=== PATIENT | male | born 1980 | race Caucasian/White ===

== ENCOUNTER → 2016-06-17 | Outpatient (CLI) | payer MEDICAID ==
[~2016-06-17] MED LIST: GADOBUTROL 10 ML VIAL IVP ONE
--- NOTE | 2016-06-17 17:43 | MR ---
MRI of the Brain (Without and With Contrast) at 1650 hours Clinical Indication: Chronic migraine headache.. Technique: MRI was performed of the brain using a 1.5 Lali MRI system. Sagittal, axial, and coronal images were performed using standard imaging sequences. Images were obtained pre and post intravenou s contrast, 6 mL of Gadavist. Findings: The ventricles, cisterns, and sulci are normal for the patient's age. No evidence for an e xtra-axial fluid collection. No evidence for mass effect or midline shift. No significant white matte r lesion is identified. No evidence for intracranial mass, hemorrhage, or infarct. Diffusion-weighted images are normal. Posterior fossa appears normal with a normal appearance to the craniocervical tae ction. Pituitary gland is normal in size. The major caliber vessels visualized are normal in appearan ce. Paranasal sinuses and mastoid air cells are clear. Impression: Normal MRI of the brain without and with contrast.
== END ==
LOC: FIMAGING 16:19
PROVIDERS: ATTEND Psychiatry & Neurology Neurology
DX: G43.709 Chronic migraine without aura, not intractable, without status migrainosus (principal)
CPT/HCPCS: A9585

== ENCOUNTER 2016-11-19 00:36 | Emergency (ER) | payer OTHER, MEDICAID ==
[2016-11-19 00:45] VITALS: BP 107/63; PULSE 67; RESP 16; TEMP 98.1; O2SAT 96
[2016-11-19] MEDS ORDERED: FLUORESCEIN SODIUM 1 MG STRIP OP ONE ×2 (00:52→00:54)
--- NOTE | 2016-11-19 01:05 | EDPHY ---
H & P Stated Complaint: c/o visual disturbances, thinks he has gotten asbestos in L eye Time Seen by Provider: 11/19/16 00:48 HPI/ROS: Chief Complaint: Eye irritation HPI: 36-year-old male was looking in the direction the sense that earlier this evening when he noticed some fine lines in his vision of his left eye. Did not have any changes in his right eye. Patient states this concerned him because earlier today he was exposed to dust while pulling out vinyl kelli. Patient later looked up the name and date of the kelli and indicated there is a possibility of asbestos being in the vinyl. Patient irrigated his eye with saline. He has had some mild irritation there since irrigating. Did not have any pain. No vision changes. No redness or other irritation. Did not have any irritation prior to noticing the changes in his vision at [place]. Patient has not had any other visual disturbances. Does not wear contacts or glasses. Currently is without complaint. ROS: 10 point Review of Systems is negative except as noted in the HPI. Physical Exam: Eye Exam Visual Acuity: Per nursing note EOM: Intact OU Visual Hahn: Intact OU Pupil: Equal, round and reactive to light and accomodation OU External: Lids, lashes and margins normal OU Slit Lamp; Normal Conjuctiva, Iris normal, Cornea normal, Anterior chambers clear without cells or flare, no hyphema, normal angles Fluorosceine exam: No uptake - Medical/Surgical History Hx Asthma: No Hx Chronic Respiratory Disease: No Hx Diabetes: No Hx Cardiac Disease: No Hx Renal Disease: No Hx Cirrhosis: No Hx Alcoholism: No Hx HIV/AIDS: No Hx Splenectomy or Spleen Trauma: No Other PMH: hep b - Social History Smoking Status: Former smoker Constitutional: Initial Vital Signs Temperature (C) 36.7 C 11/19/16 00:40 Heart Rate 67 11/19/16 00:40 Respiratory Rate 16 11/19/16 00:40 Blood Pressure 107/63 11/19/16 00:40 O2 Sat (%) 96 11/19/16 00:40 O2 Delivery Mode Room Air Allergies/Adverse Reactions: No Known Allergies Allergy (Unverified 11/19/16 00:45) Home Medications: Medication Instructions Recorded NK [No Known Home Meds] 11/19/16 Medical Decision Making ED Course/Re-evaluation: Patient with some left eye irritation after exposure to some dust from 4 in removal earlier today. There is no evidence of foreign body or abrasion. Patient is concerned because there may be a possibility exposure to asbestos. Has not had any cough or shortness of breath. Does not believe he inhaled a dose. Is completely normal exam at this point. Will discharge with referral to Ophthalmology as needed, return for worsening symptoms. - Data Points Medications Given: Discontinued Medications Fluorescein Sodium (Cvhqv-D-Ybblr) 1 mg OP EDNOW ONE Stop: 11/19/16 00:55 Last Admin: 11/19/16 00:55 Dose: 1 mg Departure - Departure Disposition: Home, Routine, Self-Care Clinical Impression: Eye irritation Condition: Good Instructions: Blurred Vision (ED) Additional Instructions: Follow up with Ophthalmology in 3-4 days if symptoms are not improving. Referrals: Sophia Petersen PA [Primary Care Provider] - As per Instructions Darvin Coleman MD [Medical Doctor] - As per Instructions
== END 2016-11-19 01:13 | disposition home or self-care (01) ==
DX: H57.8 Other specified disorders of eye and adnexa (principal); Z87.891 Personal history of nicotine dependence

== ENCOUNTER → 2017-04-04 | Outpatient (CLI) | payer OTHER, MEDICAID | LOC: FIMAGING 18:46 | PROVIDERS: ATTEND Emergency Medicine | DX: M25.561 Pain in right knee (principal) ==

== ENCOUNTER → 2017-10-27 | Outpatient (CLI) | payer OTHER, MEDICAID | LOC: FIMAGING 16:55 | PROVIDERS: ATTEND Physician Assistant | DX: M79.672 Pain in left foot (principal) ==

== ENCOUNTER 2018-01-25 20:39 | Emergency (ER) | payer OTHER, MEDICAID ==
--- NOTE | 2018-01-25 21:53 | EDPHY ---
H & P Time Seen by Provider: 01/25/18 21:35 HPI/ROS: CHIEF COMPLAINT: Right 2nd digit finger tip laceration HISTORY OF PRESENT ILLNESS: Patient here with complaint of laceration to the distal tip the right 2nd digit after E slipped and cut himself with a knife while trying to cut an onion. Denies any loss of range of motion. He was having difficulty controlling the bleeding at home so he came to the ER. Denies any current drug or alcohol use. REVIEW OF SYSTEMS: Constitutional: No fever, no chills. Eyes: No discharge. ENT: No sore throat. Cardiovascular: No chest pain, no palpitations. Respiratory: No cough, no shortness of breath. Gastrointestinal: No abdominal pain, no vomiting. Genitourinary: No hematuria. Musculoskeletal: No back pain. Skin: No rashes. Neurological: No headache. Smoking Status: Former smoker Physical Exam: General Appearance: Alert and no distress. Eyes: Pupils equal and round no injection. Respiratory: Chest is nontender, lungs are clear to auscultation. Cardiac: regular rate and rhythm. Gastrointestinal: Abdomen is soft and nontender, no masses, bowel sounds normal. Musculoskeletal: Neck is supple and nontender. Extremities have full range of motion and are nontender. Skin: No rashes. 1.5 cm superficial laceration to the distal tip of the right 2nd digit. No joint or tendon involvement. Constitutional: Initial Vital Signs Temperature (C) 36.7 C 01/25/18 20:42 Heart Rate 68 01/25/18 20:42 Respiratory Rate 18 01/25/18 20:42 Blood Pressure 97/64 L 01/25/18 20:42 O2 Sat (%) 97 01/25/18 20:42 O2 Delivery Mode Room Air Allergies/Adverse Reactions: No Known Allergies Allergy (Unverified 01/25/18 20:42) Home Medications: Medication Instructions Recorded NK [No Known Home Meds] 11/19/16 Medical Decision Making Procedures: Procedure: Laceration repair. Verbal consent was obtained from the patient. The 1cm laceration on the right 2nd digit was anesthetized in the usual fashion. The wound was irrigated, draped and explored. There were no deep structures involved. No tendon injury was identified. The wound was repaired with Steri-Strips. The wound repair was well approximated and bleeding under control. The procedure was performed by myself. Departure - Departure Disposition: Home, Routine, Self-Care Clinical Impression: Finger laceration Condition: Good Instructions: Finger Laceration (ED) Additional Instructions: Return to the ER for any signs infection. Do not apply topical antibiotic ointment. Let the Steri-Strips fall off on their own in the next 2-3 days. Referrals: Sophia Petersen PA [Primary Care Provider] - As per Instructions
[2018-01-25 22:05] VITALS: BP 107/63
== END 2018-01-25 22:12 | disposition home or self-care (01) ==
PROC: 0HQFXZZ Repair Right Hand Skin, External Approach (ICD-10-PCS; principal; 2018-01-25)
DX: S61.210A Laceration without foreign body of right index finger without damage to nail, initial encounter (principal); W26.0XXA Contact with knife, initial encounter; Y93.G1 Activity, food preparation and clean up; Y92.019 Unspecified place in single-family (private) house as the place of occurrence of the external cause; Y99.8 Other external cause status; Z87.891 Personal history of nicotine dependence

== ENCOUNTER 2018-07-12 14:39 | Inpatient (IN) | payer OTHER ==
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
[2018-07-12 15:56] LABS: PLATELET COUNT 149 10^3/uL (150-400)
--- NOTE | 2018-07-13 00:16 | ASMTLCPROG ---
Notes Note: Notes: Pt was read the Patient Rights and Responsibilities Statement on (07/12/2018), original placed on chart, and was given photocopy of Rights. Pt signed the Patient Rights. Date Signed: 07/13/2018 12:16 AM Electronically Signed By:Payal Hodge
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
--- NOTE | 2018-07-13 00:18 | ASMTTCLDSP ---
TLC Discharge Disposition Disposition: Answers: Admit Discharge Concerns/Recommendations: Notes: In consultation with [facility] ED physician, Magdalena Tellez MD and on-call psychiatrist, Penny Wilks MD, both concurred that pt appears to meet 27-65 criteria requiring psychiatric hospitalization as pt appears to be at risk of harm to others/gravely disabled due to a mental illness condition. Pt was read the Patient Rights and Responsibilities Statement on (07/12/2018), original placed on chart, and was given photocopy of Rights. Pt signedthe Patient Rights. Pt was given the 3N prohibited belongings list while in the ED. For inpatient Penny Wilks MD admission, the following psychiatrist agreed to accept patient for admission to [facility]): Date Signed: 07/13/2018 12:17 AM Electronically Signed By:Payal Hodge
[2018-07-13] MEDS ORDERED: OLANZapine DISINTEGR 5 MG TAB ONE (05:18)
[2018-07-13] MEDS ORDERED: LORazepam 0.5 MG TAB PO PRN (11:31)
[2018-07-13] MEDS ORDERED: MAGNESIUM HYDROXIDE 30 ML UDCUP PO PRN (11:31)
[2018-07-13] MEDS ORDERED: OLANZapine DISINTEGR 10 MG TAB PO PRN (11:31)
[2018-07-13] MEDS ORDERED: MAG HYDROX/AL HYDROX/SIMETH 30 ML UDCUP PO PRN (11:31)
[2018-07-13] MEDS ORDERED: ACETAMINOPHEN 325 MG TAB PO PRN (11:31)
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
[2018-07-13] MEDS: TRETINOIN 0.1% TP SCH (14:03)
--- NOTE | 2018-07-13 14:24 | BCON ---
[f rep st] BEHAVIORAL HEALTH CONSULTATION INTERNAL MEDICINE CONSULTATION DATE OF CONSULTATION: 07/13/2018 REFERRING PHYSICIAN: Dr. Wilks REASON FOR REFERRAL: Medical clearance for inpatient behavioral health stay. HISTORY OF PRESENT ILLNESS: This patient came to the emergency department on a court-ordered M1 hold that had been placed by his mother. Mother was afraid that he was threatening her and that he had n ot been taking his medications. He was evaluated by the mental health team and admitted for further psychiatric care. Currently, his main concern is his acne medication, which he says he uses topically twice a day. He wants to take a shower and would like to have his acne medication after showering. PAST MEDICAL HISTORY: 1. Chronic hepatitis B, which he reports he contracted at . 2. Schizophrenia. 3. Acne vulgaris. 4. Temporomandibular joint syndrome. PAST SURGICAL HISTORY: He denies any history of surgeries. MEDICATIONS: 1. Vitamin B12 1000 mcg p.o. daily. 2. Tretinoin 1 application topical daily. 3. Ilion-3 fatty acids 1000 mg daily. 4. Multivitamin 1 p.o. daily. 5. Erythromycin/benzoyl peroxide 1 application q.h.s. 6. Per review of the medical record, his mother reported he was also taking risperidone and hydroxyz ine. ALLERGIES: There are no known drug allergies. SOCIAL HISTORY: He lives alone in an apartment in [address] His mother lives in [place], [place], but also has a room in [place] and spends time in [place]. He is a nonsmoker. He is not emplo yed. FAMILY HISTORY: Noncontributory. REVIEW OF SYSTEMS: He denies fevers, chills, weight change, nausea, vomiting, constipation or diarrh ea, cough or dyspnea, dysuria or urinary frequency, joint pain or joint swelling, and otherwise a 10- point review of systems is negative. PHYSICAL EXAM: VITAL SIGNS: Blood pressure is 116/69, heart rate is 59, respiratory rate is 14, oxy gen saturation is 98% on room air, temperature is 36.6 degrees centigrade. His weight is 63.5 kg for a body mass index of 19. GENERAL: This is a thin man, dressed in several layers of oversized shirt s, appears his chronologic age, well groomed, cooperative and in no acute distress. HEENT: Extraocu lar movements are intact. Pupils are equal, round, reactive to light. Mucous membranes are moist. Dentition is in good condition. NECK: Supple. HEART: Regular rate and rhythm with no murmurs, rub s or gallops. LUNGS: Clear to auscultation bilaterally. ABDOMEN: Benign. EXTREMITIES: There is no cyanosis, clubbing or edema. NEUROLOGIC: He is alert and oriented x3. Cranial nerves 2-12 are g rossly intact. There is no focal weakness. Sensation is intact to light touch and gait is normal. LABORATORY STUDIES: From the emergency department, CBC showed a low platelet count at 149, otherwise was within normal limits. Serum chemistry revealed normal renal function and electrolytes. Liver f unction tests were normal. Toxicology screen in the serum was negative for ethyl alcohol and in the urine was negative for any substances of abuse. ASSESSMENT/RECOMMENDATIONS: 1. Hepatitis B. He reports he has had regular ultrasound surveillance and at times he says his live r looked like it was 70 years old and other times it looked normal. He should have referral to Infec tious Disease or Gastroenterology and he should continue regular surveillance. At the moment, other than the thrombocytopenia, his labs do not show any signs of active liver disease. He has a positive hepatitis B surface antigen from 09/23/2015 in the medical record. 2. Thrombocytopenia. Unclear whether this may be related to hepatitis. He does not clinically appe ar to have an enlarged spleen which could be causative of thrombocytopenia in the setting of chronic liver disease. 3. Acne vulgaris. I have prescribed Tretinoin as a non-formulary medication that he has brought in and this should be continued. I see no medical contraindications to this patient's continued stay on the inpatient [facility] unit or to any psychiatric medications or procedures. Thank you very much for including me in the care of this patient and please do not hesitate to contac t me or the hospitalist service should there be need for further medical evaluation. /[id number]/MODL
--- NOTE | 2018-07-13 14:55 | ASMTCMCOM ---
CM Note CM Note Notes: Pt and CC completed MTP, signed and placed in chart. Pt. stated his only legal issue is being in the hospital. Pt. stated he doesn't drink alcohol. Pt. stated he doesn't smoke THC. Pt. denied all other substance use. Pt. stated he was at [facility] in December, adding it helped "change my focus, overrode a bad situation". Pt. stated he "can't take medications". Pt. presents as alert, rambling, pressured speech at times, intermittent eye contact, and cooperative. Pt. signed an ARUNA for [facility], CC to reach out for follow up appointments for pt. Date Signed: 07/13/2018 02:54 PM Electronically Signed By:Betty Phan
[2018-07-13] MEDS: OLANZapine DISINTEGR 10 MG TAB PO SCH (19:27)
[2018-07-14] MEDS: TRETINOIN 0.1% TP SCH (09:31)
--- NOTE | 2018-07-14 10:02 | PDMN ---
Medical Necessity Medical [place] [facility] [place] Bipolar Disorders, Adult: Inpatient Care, 4 days: 38 w/ bipolar 1 d/o, severe, w/ mood congruent psychotic features, on M1 hold , high risk as pt is gravely disabled, danger to self and danger to others.
[2018-07-14] MEDS ORDERED: OLANZapine DISINTEGR 5 MG TAB PO PRN (17:28)
--- NOTE | 2018-07-14 17:38 | SOAPPROG ---
SOAP Progress Note Assessment/Plan: Assessment: 38 yo unemployed man on court-ordered involuntary commitment for MH evaluation ( M3). Mother petitioned the court for eval d/t ongoing psychotic sxs, including paranoid delusions, threats against his mother and bizarre behavior. Mother reports patient has not been leaving his apartment or attending to ADLs. Mother says she doesn't feel safe around the patient. Plan: 07/14/18 17:33 1. Patient refused to take Olanzapine last night. He refuses all psych meds. 2. MOC reported patient wasn't attending to ADLs at home. But in hospital, he has been excessively attentive, including requesting extra hygiene products, including moisturizer after his shower. 3. Patient denies AH/VH since admission, but paranoid delusions were one of the symptoms reported by MOC. 4. M3 will expires tomorrow. Subjective: Patient took shower this AM and staff report he has been very attentive to his ADLs. He asked MD for order so he could shave. He denies any SI/HI, and has not demonstrated any unsafe behavior on unit. Since admission, he has been calm and cooperative. However, MO reports he has been calling and threatening to kill her if she doesn't give him money. MO also says patient has been delusional in past, claiming he was going to Ruthann Crocker and other celebrities. Patient has not expressed those delusions since he's been in hospital. He shows no signs of responding to IS/ES. He refused to take Olanzapine last night b/c he says she doesn't need psych meds. Objective: Vital Signs Temp Pulse Resp BP Pulse Ox 36.6 C 59 L 14 116/69 98 07/13/18 08:00 07/13/18 13:13 07/13/18 13:13 07/13/18 13:13 07/13/18 13:13 MSE: Affect: Euthymic Mood: "OK" TP: Goal-directed TC: Denies any SI/HI Insight/Judgment: Poor based on MOC's petition - Time Spent With Patient Time Spent With Patient: 15" - Pending Discharge Pending Discharge Within 24 Hours: No Pending Discharge Within 48 Hours: No ICD10 Worksheet Patient Problems: Problems Problem Status Onset Homicidal ideation Acute Suicidal ideation Acute Unspecified psychosis Acute
[2018-07-14] MEDS: OLANZapine DISINTEGR 10 MG TAB PO SCH (20:07)
[2018-07-15] MEDS: TRETINOIN 0.1% TP SCH (09:23)
--- NOTE | 2018-07-15 15:52 | ASMTCMCOM ---
CM Note CM Note Notes: The patient completed an ARUNA for his mother, who visited twice over the weekend. Per MOC, the patient does not typically involve her in his care, she reported that this is a sign of improvement. She asked whether he was taking medication because he was "calm." Both MOC and the patient confirmed that he was sleep deprived prior to admission. Date Signed: 07/15/2018 03:51 PM Electronically Signed By:Louise Parekh
--- NOTE | 2018-07-15 18:38 | SOAPPROG ---
SOAP Progress Note Assessment/Plan: Assessment: 38 yo unemployed man on court-ordered involuntary commitment for MH evaluation ( M3). Mother petitioned the court for eval d/t ongoing psychotic sxs, including paranoid delusions, threats against his mother and bizarre behavior. Mother reports patient has not been leaving his apartment or attending to ADLs. Mother says she doesn't feel safe around the patient. Plan: 07/14/18 17:33 1. Patient refused to take Olanzapine last night. He refuses all psych meds. 2. MOC reported patient wasn't attending to ADLs at home. But in hospital, he has been excessively attentive, including requesting extra hygiene products, including moisturizer after his shower. 3. Patient denies AH/VH since admission, but paranoid delusions were one of the symptoms reported by MOC. 4. M3 will expires tomorrow. 07/15/18 18:33 1. Patient continues to refuse Olanzapine. 2. MD told CC that she doesn't want patient to know she is sharing information with court and with staff. She says she is afraid what he will do to her after he leaves hospital. 3. On unit, patient has been calm, cooperative, there have been no aggressive or threatening behaviors. 4. MD placed patient on STC based on MOC's report that patient has threatened to "punch me in face" and to kill her if she didn't give him money. MOC agrees patient seems "calmer" on unit. MD feels like given the severity of threats and dangerous situations MOC describes, the treatment team needs more time to evaluate patient to determine whether or not he is safe to leave hospital. 5. Patient denies AH/VH, paranoid delusions, IOR. But he does appear to have some thought blocking and derailment at times. MD has not observed him responding to IS/ES. 6. CCM 7. STC Subjective: Patient continues to demand skin care products and pay excessive attention to his daily hygiene habits. Patient admits he's sleeping "so good" in hospital, better than he was at home. Patient denies any problems with MOC and says their visits have gone well. MOC agrees patient seems "calmer" in hospital. It's possible that one reason patient presents so much better in hospital is b/c his sxs were exacerbated by drug use at home. MOC told [facility] that patient has used THC on regular basis since HS. His UDS was negative for drugs and alcohol, but these have been inaccurate in past. If patient is using THC frequently, then much of his mood lability, irritability, aggression and impulsivity may be due to drug use. Objective: Vital Signs Temp Pulse Resp BP Pulse Ox 36.6 C 59 L 14 116/69 98 07/13/18 08:00 07/13/18 13:13 07/13/18 13:13 07/13/18 13:13 07/13/18 13:13 MSE: Affect: Calm, pleasant Mood: "OK" TP: Linear TC: Denies any SI/HI, less paranoid than MOC describes at home Perception: Denies any AH/VH Insight/ Judgment: Poor - Time Spent With Patient Time Spent With Patient: 15" - Pending Discharge Pending Discharge Within 24 Hours: No Pending Discharge Within 48 Hours: No ICD10 Worksheet Patient Problems: Problems Problem Status Onset Homicidal ideation Acute Suicidal ideation Acute Unspecified psychosis Acute
[2018-07-15] MEDS: OLANZapine DISINTEGR 10 MG TAB PO SCH (20:22)
--- NOTE | 2018-07-16 09:27 | SOAPPROG ---
SOAP Progress Note Assessment/Plan: Assessment: Unspecified Psychosis. R/O Schizophrenia. R/O Schizoaffective Disorder. Bipolar Disorder ruled-out. Refusing antipsychotic medications. No improvement noted (see subjective/objective note). Patient is not safe to discharge at this time as patient continues to exhibit signs of psychosis, and express psychosis symptoms. Patient requires continued inpatient care because of current psychosis, and requires inpatient level of care to stabilize to no longer be gravely disabled due to mental illness. Patient is unable to communicate his basic needs, unable to test reality, and continues to require prompting and direction from staff for ADLs. Patient exhibits inability to provide for himself, neglecting self-care, withdrawn from social interactions, currently shows inability to maintain any appropriate aspect of personal responsibility as an adult. Support system has inability to manage functional impairment at lower level of care. Patient could benefit from continued inpatient hospitalization for crisis stabilization, safety, and medication evaluation. Plan: 1. Psychotropic medications: No other medication changes at this time as more time is needed to determine ongoing tolerability and efficacy. Plan is to continue to observe patient for response and side effects from medications, and ongoing monitoring and evaluation. 2. Review with patient informed consent and recommendations for psychotropic medication treatment listed below 3. Labs: no additional labs at this time 4. Therapy: continue milieu and group therapy 5. Further investigation including gathering information from patients relatives and review of past case records to inform treatment plan. 6. Safety/Wellness plan and follow-up outpatient appointments to be established prior to discharge. Next steps are for patient to meet with childcare administrator to plan a safe discharge plan and establish outpatient services for ongoing treatment. 7. Confer with inpatient treatment team regarding treatment plan. 8. Psychosocial stressors addressed through top case assembler. 9. Legal status: [facility] 10. Consider discharge next week if patient is in stable condition, safe, and has a safe discharge plan. PSYCHOTROPIC MEDICATION TREATMENT INFORMED CONSENT and RECOMMENDATIONS: Review nature of condition, diagnosis, and prognosis. Review nature and purpose of psychotropic medication treatment. Review type of psychotropic medications being ordered. Review risk and benefits of psychotropic medication treatment. Review probable length of time patient will need to take medications. Review risk and benefits of not undergoing psychotropic medication treatment. Review alternative treatments to psychotropic medications. Review psychotropic medications contraindications, drug-drug interactions, side effects, and importance of reporting any side effects to a psychiatric provider or nurse during inpatient hospitalization, and upon discharge to patients psychiatric outpatient provider, primary care provider, or other health respiratory care technician. Review importance of asking a nurse, psychiatric provider, or primary care provider any questions or problems concerning the psychotropic medications. Verify patient understands the information that has been provided, and understands, accepts, and agrees to psychotropic medications. Review patients safety plan and importance of patient to report to staff while hospitalized if patient is ever a danger to self/others, or unable to care for self, and upon discharge, the importance for patient to contact [facility] or [facility], or go to the nearest emergency room, if patient is ever a danger to self/others, or unable to care for self. Recommend that upon discharge patient establish medication management treatment with a psychiatric provider, establishes routine therapy appointments, and follow-up with primary care provider. Verify patient understands and agrees to these recommendations. 07/16/18 09:29 Subjective: Following up with patient for evaluation of psychosis and safety. Patient reports, "I just came here to get some rest, I am not going to take medications. I don't need those right now. Just need to get straight." Patient expresses the following psychiatric symptoms delusions. Patient reports not taking medications as prescribed. Patient describes getting 8 hours of sleep. Objective: Vital Signs Temp Pulse Resp BP Pulse Ox 36.4 C 73 16 99/64 L 95 07/16/18 06:00 07/16/18 06:00 07/16/18 06:00 07/16/18 06:00 07/16/18 06:00 NURSING REPORT: Consulted with nursing for update on patients progress in treatment. Nurses report patient is not engaged in treatment, is attending some groups, slept 8 hours, expresses the following psychiatric symptoms: anxious, exhibits the following psychiatric symptoms: disorganized, is eating all meals, is agreeable to medications and taking as prescribed with no report of side effects, with no s/s of EPS/akathisia, and denies SI/HI, denies A/V hallucinations, and denies delusions. MSE: The patient is a well-nourished male looking stated chronological age. Attire is appropriate dress is casual. Grooming status is appropriate. Ambulation is independent. Gait is normal and coordinated. Posture is normal. Eye contact is appropriate. Motor activity is appropriate with purposeful, organized, coordinated movements; with no involuntary movements. Attitude is uncooperative, defensive and guarded at times. Patient appears distractible and does not relate well to this interviewer. Language production is spontaneous. Rate is pressured. Latency of response is shortened. Articulation is clear. Patient reports mood as okay with constricted and incongruent affect. Patients thought process is disorganized, non-linear and illogical, with loose associations, nonsensical. Patient does not report suicidal/homicidal thoughts, ideas, or plans. Patient denies auditory, visual hallucinations. Patient denies delusions. Patient does not appear to be attending to internal stimuli. Patients attention and concentration are poor. Patient is oriented to person, place, and time. Patients insight is poor. Patients judgment is poor. - Time Spent With Patient Time Spent With Patient: 15 minutes, met with patient individually. - Pending Discharge Pending Discharge Within 24 Hours: No Pending Discharge Within 48 Hours: No ICD10 Worksheet Patient Problems: Problems Problem Status Onset Homicidal ideation Acute Suicidal ideation Acute Unspecified psychosis Acute
[2018-07-16] MEDS: TRETINOIN 0.1% TP SCH (09:29)
--- NOTE | 2018-07-16 12:11 | ASMTCMCOM ---
CM Note CM Note Notes: The patient participated in clinical treatment team rounds. He reported that he was feeling "good" which he clarified to mean "not problematic." He reported that he was "focusing on self, rest, and exercise." The patient reported that he had been previously "distracted." The treatment team recommended the patient consider starting medication. The patient refused. He stated, "Medication is a violent assault on my body. My mom knew that you would make this decision that is why she had be brought here." He became labile and irritable prior to concluding the meeting. Date Signed: 07/16/2018 12:10 PM Electronically Signed By:Louise Parekh
--- NOTE | 2018-07-16 14:18 | ASMTBHDC ---
Notes Note: Notes: CC posted tentative apt: [facility]: [facility] [address] [place] [address] Next Apt: July 20 (07/20/18) at 2:30pm with Kathleen. Date Signed: 07/16/2018 02:17 PM Electronically Signed By:Chalino Rose
[2018-07-16] MEDS: OLANZapine DISINTEGR 10 MG TAB PO SCH (22:37)
--- NOTE | 2018-07-17 08:46 | SOAPPROG ---
SOAP Progress Note Assessment/Plan: Assessment: Schizophrenia. Continues to refuse antipsychotic medications. No improvement noted (see subjective/objective note). Patient is not safe to discharge at this time as patient continues to exhibit signs of psychosis, and express psychosis symptoms. Patient requires continued inpatient care because of current psychosis, and requires inpatient level of care to stabilize to no longer be gravely disabled due to mental illness. Patient is unable to communicate his basic needs, unable to test reality, and continues to require prompting and direction from staff for ADLs. Patient exhibits inability to provide for himself, neglecting self-care, withdrawn from social interactions, currently shows inability to maintain any appropriate aspect of personal responsibility as an adult. Support system has inability to manage functional impairment at lower level of care. Patient could benefit from continued inpatient hospitalization for crisis stabilization, safety, and medication evaluation. Plan: 1. Psychotropic medications: Patient currently refusing antipsychotic medications. Will continue to provide education on medications. 2. Review with patient informed consent and recommendations for psychotropic medication treatment listed below 3. Labs: no additional labs at this time 4. Therapy: continue milieu and group therapy 5. Further investigation including gathering information from patients relatives and review of past case records to inform treatment plan. 6. Safety/Wellness plan and follow-up outpatient appointments to be established prior to discharge. Next steps are for patient to meet with specialist wound care to plan a safe discharge plan and establish outpatient services for ongoing treatment. 7. Confer with inpatient treatment team regarding treatment plan. 8. Psychosocial stressors addressed through protective services case worker. 9. Legal status: [facility] 10. Consider discharge next week if patient is in stable condition, safe, and has a safe discharge plan. PSYCHOTROPIC MEDICATION TREATMENT INFORMED CONSENT and RECOMMENDATIONS: Review nature of condition, diagnosis, and prognosis. Review nature and purpose of psychotropic medication treatment. Review type of psychotropic medications being ordered. Review risk and benefits of psychotropic medication treatment. Review probable length of time patient will need to take medications. Review risk and benefits of not undergoing psychotropic medication treatment. Review alternative treatments to psychotropic medications. Review psychotropic medications contraindications, drug-drug interactions, side effects, and importance of reporting any side effects to a psychiatric provider or nurse during inpatient hospitalization, and upon discharge to patients psychiatric outpatient provider, primary care provider, or other health resident care assistant. Review importance of asking a nurse, psychiatric provider, or primary care provider any questions or problems concerning the psychotropic medications. Verify patient understands the information that has been provided, and understands, accepts, and agrees to psychotropic medications. Review patients safety plan and importance of patient to report to staff while hospitalized if patient is ever a danger to self/others, or unable to care for self, and upon discharge, the importance for patient to contact [facility] or [facility], or go to the nearest emergency room, if patient is ever a danger to self/others, or unable to care for self. Recommend that upon discharge patient establish medication management treatment with a psychiatric provider, establishes routine therapy appointments, and follow-up with primary care provider. Verify patient understands and agrees to these recommendations. 07/17/18 08:49 Subjective: Following up with patient for evaluation of psychosis and safety. Patient reports, "I am doing fine. Don't need medications. Just some rest." Patient expresses the following psychiatric symptoms irritability. Patient reports not taking medications as prescribed. Patient describes getting 8 hours of sleep. Patient agrees for this AUTOMOTIVE COLLISION REPAIR INSTRUCTOR to meet with his mother for family meeting. Objective: Vital Signs Temp Pulse Resp BP Pulse Ox 36.4 C 73 16 99/64 L 95 07/16/18 06:00 07/16/18 06:00 07/16/18 06:00 07/16/18 06:00 07/16/18 06:00 NURSING REPORT: Consulted with nursing for update on patients progress in treatment. Nurses report patient is not engaged in treatment, is attending some groups, slept 6 hours, expresses the following psychiatric symptoms: anxious, exhibits the following psychiatric symptoms: disorganized, irritable; is eating all meals, is not agreeable to medications; denies SI/HI, denies A/V hallucinations, and denies delusions. MSE: The patient is a well-nourished male looking stated chronological age. Attire is appropriate dress is casual. Grooming status is appropriate. Ambulation is independent. Gait is normal and coordinated. Posture is normal. Eye contact is appropriate. Motor activity is appropriate with purposeful, organized, coordinated movements; with no involuntary movements. Attitude is uncooperative, defensive and guarded at times. Patient appears distractible and does not relate well to this interviewer. Language production is spontaneous. Rate is pressured. Latency of response is shortened. Articulation is clear. Patient reports mood as okay with constricted and incongruent affect. Patients thought process is disorganized, non-linear and illogical. Patient does not report suicidal/homicidal thoughts, ideas, or plans. Patient denies auditory, visual hallucinations. Patient denies delusions. Patient does not appear to be attending to internal stimuli. Patients attention and concentration are poor. Patient is oriented to person, place, and time. Patients insight is poor. Patients judgment is poor. - Time Spent With Patient Time Spent With Patient: 15 minutes, met with patient individually. - Pending Discharge Pending Discharge Within 24 Hours: No Pending Discharge Within 48 Hours: No ICD10 Worksheet Patient Problems: Problems Problem Status Onset Homicidal ideation Acute Suicidal ideation Acute Unspecified psychosis Acute
[2018-07-17] MEDS: TRETINOIN 0.1% TP SCH (11:02)
[2018-07-17] MEDS: OLANZapine DISINTEGR 10 MG TAB PO SCH (18:35)
--- NOTE | 2018-07-18 08:02 | SOAPPROG ---
SOAP Progress Note Assessment/Plan: Assessment: Schizophrenia. Continues to refuse antipsychotic medications. Awaiting COM. No improvement noted (see subjective/objective note). Patient is not safe to discharge at this time as patient continues to exhibit signs of psychosis, and express psychosis symptoms. Patient requires continued inpatient care because of current psychosis, and requires inpatient level of care to stabilize to no longer be gravely disabled due to mental illness. Patient is unable to communicate his basic needs, unable to test reality, and continues to require prompting and direction from staff for ADLs. Patient exhibits inability to provide for himself, neglecting self-care, withdrawn from social interactions, currently shows inability to maintain any appropriate aspect of personal responsibility as an adult. Support system has inability to manage functional impairment at lower level of care. Patient could benefit from continued inpatient hospitalization for crisis stabilization, safety, and medication evaluation. Plan: 1. Psychotropic medications: Patient currently refusing antipsychotic medications. Will continue to provide education on medications. 2. Review with patient informed consent and recommendations for psychotropic medication treatment listed below 3. Labs: no additional labs at this time 4. Therapy: continue milieu and group therapy 5. Further investigation including gathering information from patients relatives and review of past case records to inform treatment plan. 6. Safety/Wellness plan and follow-up outpatient appointments to be established prior to discharge. Next steps are for patient to meet with critical care clinical nurse specialist to plan a safe discharge plan and establish outpatient services for ongoing treatment. 7. Confer with inpatient treatment team regarding treatment plan. 8. Psychosocial stressors addressed through cyanide case hardener. 9. Legal status: [facility] 10. Consider discharge next week if patient is in stable condition, safe, and has a safe discharge plan. PSYCHOTROPIC MEDICATION TREATMENT INFORMED CONSENT and RECOMMENDATIONS: Review nature of condition, diagnosis, and prognosis. Review nature and purpose of psychotropic medication treatment. Review type of psychotropic medications being ordered. Review risk and benefits of psychotropic medication treatment. Review probable length of time patient will need to take medications. Review risk and benefits of not undergoing psychotropic medication treatment. Review alternative treatments to psychotropic medications. Review psychotropic medications contraindications, drug-drug interactions, side effects, and importance of reporting any side effects to a psychiatric provider or nurse during inpatient hospitalization, and upon discharge to patients psychiatric outpatient provider, primary care provider, or other health primary care nurse. Review importance of asking a nurse, psychiatric provider, or primary care provider any questions or problems concerning the psychotropic medications. Verify patient understands the information that has been provided, and understands, accepts, and agrees to psychotropic medications. Review patients safety plan and importance of patient to report to staff while hospitalized if patient is ever a danger to self/others, or unable to care for self, and upon discharge, the importance for patient to contact [facility] or [facility], or go to the nearest emergency room, if patient is ever a danger to self/others, or unable to care for self. Recommend that upon discharge patient establish medication management treatment with a psychiatric provider, establishes routine therapy appointments, and follow-up with primary care provider. Verify patient understands and agrees to these recommendations. 07/18/18 08:00 Subjective: Following up with patient for evaluation of psychosis and safety. Patient reports, "I am doing fine. I just need to rest. I don't need medications for schizophrenia, just going to make things worse. I whole lot worse. I have been going through this for 25 years." Patient expresses the following psychiatric symptoms agitation. Patient reports not taking medications as prescribed. Patient describes getting 8 hours of sleep. Objective: Vital Signs Temp Pulse Resp BP Pulse Ox 36.4 C 73 16 99/64 L 95 07/16/18 06:00 07/16/18 06:00 07/16/18 06:00 07/16/18 06:00 07/16/18 06:00 NURSING REPORT: Consulted with nursing for update on patients progress in treatment. Nurses report patient is not engaged in treatment, is attending some groups, slept 6 hours, expresses the following psychiatric symptoms: anxious, exhibits the following psychiatric symptoms: disorganized, irritable; is eating all meals, is not agreeable to medications; denies SI/HI, denies A/V hallucinations, and denies delusions. MSE: The patient is a well-nourished male looking stated chronological age. Attire is appropriate dress is casual. Grooming status is appropriate. Ambulation is independent. Gait is normal and coordinated. Posture is normal. Eye contact is appropriate. Motor activity is appropriate with purposeful, organized, coordinated movements; with no involuntary movements. Attitude is uncooperative, defensive and guarded at times. Patient appears distractible and does not relate well to this interviewer. Language production is spontaneous. Rate is pressured. Latency of response is shortened. Articulation is clear. Irritable tone. Patient reports mood as okay with constricted and incongruent affect. Patients thought process is disorganized, non-linear and illogical. Patient does not report suicidal/homicidal thoughts, ideas, or plans. Patient denies auditory, visual hallucinations. Patient denies delusions. Patient does not appear to be attending to internal stimuli. Patients attention and concentration are poor. Patient is oriented to person , place, and time. Patients insight is poor. Patients judgment is poor. - Time Spent With Patient Time Spent With Patient: 15 minutes, met with patient individually. - Pending Discharge Pending Discharge Within 24 Hours: No Pending Discharge Within 48 Hours: No ICD10 Worksheet Patient Problems: Problems Problem Status Onset Homicidal ideation Acute Suicidal ideation Acute Unspecified psychosis Acute
[2018-07-18] MEDS: TRETINOIN 0.1% TP SCH ×2 (08:11→21:27)
--- NOTE | 2018-07-18 12:40 | ASMTCMCOM ---
CM Note CM Note Notes: CC checked in with ct. He reported that he is doing fine. He said that being on the unit is relaxing and that he had been able to sleep well. He reported that he used to receive services at [facility] but stopped going there about 5 months ago. He is interested in resuming services and signed an ARUNA. Date Signed: 07/18/2018 12:26 PM Electronically Signed By:Venessa Ghosh
[2018-07-18] MEDS: OLANZapine DISINTEGR 10 MG TAB PO SCH (21:00)
--- NOTE | 2018-07-19 13:12 | ASMTCMCOM ---
CM Note CM Note Notes: CC checked in with ct. He reported that he is doing fine and discussed his concerns about taking medications. Ct. is open to re-start services at [facility] [[email or web address] Date Signed: 07/19/2018 12:54 PM Electronically Signed By:Venessa Ghosh
--- NOTE | 2018-07-19 17:58 | SOAPPROG ---
SOAP Progress Note Assessment/Plan: Assessment: Plan: 07/19/18 17:59 Psychosis: Improved, but persistent. I continue to believe he will benefit from neuroleptic medication. He is agreeable to Latuda. Will start at 40mg, monitor. Subjective: Pt seen, discussed with staff, chart reviewed. I spoke with him at length today in regards to possible medication treatments. He states that he does not have schizophrenia and that medication "make me too plotting." He states he "thinks too much about what I want to do and that's bad." I reviewed with him that he was on Risperdal for years and was functioning better. He argues this but admits his close monitoring through the [facility] was helpful. He remains in good behavioral control here and is compliant with groups. Sleeping better. No c/o's. I reviewed numerous options for medication and he agrees to a trial of Latuda. States, "I want to try something new." The risks, benefits and alternatives of this are reviewed at length with him and he is provided a med-ed sheet. Objective: Vital Signs Temp Pulse Resp BP Pulse Ox 36.4 C 73 16 99/64 L 95 07/16/18 06:00 07/16/18 06:00 07/16/18 06:00 07/16/18 06:00 07/16/18 06:00 MSE: Marginally groomed, pleasant and coop. Much less irritable and hostile than on previous encounters. Affect is restricted, stable, approp. Mood is "fine." TP is generally linear, though there is still some tangentiality and possible blocking. Paranoia is improved. - Time Spent With Patient Time Spent With Patient: 25" ICD10 Worksheet Patient Problems: Problems Problem Status Onset Homicidal ideation Acute Suicidal ideation Acute Unspecified psychosis Acute
[2018-07-19] MEDS: OLANZapine DISINTEGR 10 MG TAB PO SCH (18:16)
[2018-07-19] MEDS: LURASIDONE HCL 40 MG TAB PO SCH (18:16)
[2018-07-19] MEDS: BENZOYL PEROXIDE TP SCH (20:19)
[2018-07-19] MEDS: ERYTHROMYCIN TP SCH (20:19)
[2018-07-20] MEDS: TRETINOIN 0.1% TP SCH ×3 (10:23→13:43)
--- NOTE | 2018-07-20 13:38 | ASMTCMCOM ---
CM Note CM Note Notes: CC checked in with ct. He reported that he is doing fine. He said that he tries to monitor his actions and modify them. For example he realized that he should try going to bed earlier in order to regulate his sleep. He reported that the structure on the unit helps him feel more focused and regulated. Date Signed: 07/20/2018 01:33 PM Electronically Signed By:Venessa Ghosh
--- NOTE | 2018-07-20 13:50 | SOAPPROG ---
SOAP Progress Note Assessment/Plan: Assessment: Plan: 07/19/18 17:59 Psychosis: Improved, but persistent. I continue to believe he will benefit from neuroleptic medication. He is agreeable to Latuda. Will start at 40mg, monitor. 07/20/18 13:50 Psychosis: No change. Pt agrees to take Latuda. If not, will pursue COM. Subjective: Pt seen, discussed with staff. Reviewed events of yesterday. He states he was upset because RN "called me a liar." He insists he told his estate planning attorney he was ( in the recent past) taking gabapentin, not meds in the hospital. He then states he felt pressured to take the medication without enough time to review the med ed sheets. He asks several questions re: TD and dosage. He then agrees to take Latuda 40mg starting today. Objective: Vital Signs Temp Pulse Resp BP Pulse Ox 36.4 C 73 16 99/64 L 95 07/16/18 06:00 07/16/18 06:00 07/16/18 06:00 07/16/18 06:00 07/16/18 06:00 MSE: Sleeping in bed when I enter his room at 1115. He awakens, engages. Minimal hostility, generally coop. Affect is restricted, stable. Mood is "not too good." TP is generally linear. TC reveals continued paranoia. - Time Spent With Patient Time Spent With Patient: 25" ICD10 Worksheet Patient Problems: Problems Problem Status Onset Homicidal ideation Acute Suicidal ideation Acute Unspecified psychosis Acute
[2018-07-20] MEDS: LURASIDONE HCL 40 MG TAB PO SCH (17:18)
[2018-07-20] MEDS: BENZOYL PEROXIDE TP SCH (21:54)
[2018-07-20] MEDS: ERYTHROMYCIN TP SCH (21:54)
[2018-07-20] MEDS: OLANZapine DISINTEGR 10 MG TAB PO SCH (22:15)
[2018-07-21] MEDS: TRETINOIN 0.1% TP SCH (10:51)
--- NOTE | 2018-07-21 15:06 | ASMTCMCOM ---
CM Note CM Note Notes: Pt. reports feeling "alright". Pt. stated he slept "okay". Pt. reports getting enough to eat. Pt. reports having no issues with his current medications. Pt. stated he has a new diagnosis of Schizophrenia, which pt doesn't agree with. Pt. then stopped CC to ask what she was writing down. Pt. stated he doesn't want things written down. Pt. stated he doesn't think he is in reality. Pt. feels that things are being said about him that are not true, and creating this "reality". Pt. stated he didn't want to meet with CC, but thought he had to meet with CC. Pt. then left the conversation Pt. presents as alert, paranoia, guarded, juvenile at times, hiding his head and arms inside his shirt, distracted, limited eye contact, frustrated with CC, and non cooperative. Staff report pt. sleeping 7.5 hours and refusing his Zyprexa, but taking his Latuda. Staff report pt. declining his vitals this morning. Staff report pt. refusing visits from his mother since Monday afternoon. Pt. has an [facility] intake appointment on 08/01/18 at 2:30pm at the [facility]. Date Signed: 07/21/2018 03:06 PM Electronically Signed By:Betty Phan
[2018-07-21] MEDS: LURASIDONE HCL 40 MG TAB PO SCH (17:08)
[2018-07-21] MEDS: OLANZapine DISINTEGR 10 MG TAB PO SCH (17:18)
[2018-07-21] MEDS: ERYTHROMYCIN TP SCH (17:19)
[2018-07-21] MEDS: BENZOYL PEROXIDE TP SCH (17:19)
--- NOTE | 2018-07-21 19:30 | SOAPPROG ---
SOAP Progress Note Assessment/Plan: Assessment: 38 yo unemployed man on court-ordered involuntary commitment for MH evaluation ( M3). Mother petitioned the court for eval d/t ongoing psychotic sxs, including paranoid delusions, threats against his mother and bizarre behavior. Mother reports patient has not been leaving his apartment or attending to ADLs. Mother says she doesn't feel safe around the patient. Per Dr. Silvestre's note: 07/19/18 17:59 Psychosis: Improved, but persistent. I continue to believe he will benefit from neuroleptic medication. He is agreeable to Latuda. Will start at 40mg, monitor. 07/20/18 13:50 Psychosis: No change. Pt agrees to take Latuda. If not, will pursue COM. Subjective: Pt seen, discussed with staff. Reviewed events of yesterday. He states he was upset because RN "called me a liar." He insists he told his assistant prosecuting attorney he was ( in the recent past) taking gabapentin, not meds in the hospital. He then states he felt pressured to take the medication without enough time to review the med ed sheets. He asks several questions re: TD and dosage. He then agrees to take Latuda 40mg starting today. WEEKEND PLAN: 07/21/18 19:25 1. Patient refuses to participate in treatment and won't attend any groups. 2. Patient continues to refuse Zyprexa. Will d/c. 3. Patient agreed to take Latuda after several discussions with Dr. Silvestre. After refusing it on 07/19, he took it as scheduled on 07/20 and 07/21. 4. Patient told RN he wants a "restraining order" against his [facility]. He refused to see her last night and this afternoon when she came for a visit. [facility] admits she gives him "whatever he wants" and "never gave him any boundaries" so he has taken advantage of her and continues to threaten and control her, especially by demanding money. 5. STC Subjective: Patient is standing at nurse's station asking to use phone. He refused visit from his MOC when she arrived on unit at Noon. [facility] was very upset, but then realized she was the one who didn't want him coming to [place] to visit her b/c she didn't feel safe. Patient refuses to participate in treatment, states he won't go to goals group b/c "I don't set goals...I don't achieve them...then I feel bad." Patient has taken Latuda as prescribed x 2 doses. Objective: Vital Signs Temp Pulse Resp BP Pulse Ox 36.4 C 73 16 99/64 L 95 07/16/18 06:00 07/16/18 06:00 07/16/18 06:00 07/16/18 06:00 07/16/18 06:00 MSE: Affect: Mostly pleasant, but can become quite irritable when doesn't get what he wants, especially with his MOC Mood: "OK" TP: Linear mostly, at times becomes loose TC: Denies SI/HI, no threats toward MOC or others while on unit Insight/Judgment: Poor - Time Spent With Patient Time Spent With Patient: 15" - Pending Discharge Pending Discharge Within 24 Hours: No Pending Discharge Within 48 Hours: No ICD10 Worksheet Patient Problems: Problems Problem Status Onset Homicidal ideation Acute Suicidal ideation Acute Unspecified psychosis Acute
[2018-07-22] MEDS: TRETINOIN 0.1% TP SCH (10:02)
--- NOTE | 2018-07-22 15:12 | ASMTCMCOM ---
CM Note CM Note Notes: CC attempted to meet with pt at different times throughout the day. Pt. stated he doesn't want to meet with CC. Staff report pt. sleeping 7 hours and taking all of his medications last night. Staff report pt. working on his ADLs, attending groups, appropriate with staff and peers, and cooperative. Pt's mother visited again today, but pt refused to meet with her. Pt. has an intake with P on 08/01 @ 2:30pm at [facility] Date Signed: 07/22/2018 03:11 PM Electronically Signed By:Betty Phan
[2018-07-22] MEDS: LURASIDONE HCL 40 MG TAB PO SCH (17:15)
--- NOTE | 2018-07-22 18:46 | SOAPPROG ---
SOAP Progress Note Assessment/Plan: Assessment: 38 yo unemployed man on court-ordered involuntary commitment for MH evaluation ( M3). Mother petitioned the court for eval d/t ongoing psychotic sxs, including paranoid delusions, threats against his mother and bizarre behavior. Mother reports patient has not been leaving his apartment or attending to ADLs. Mother says she doesn't feel safe around the patient. Per Dr. Silvestre's note: 07/19/18 17:59 Psychosis: Improved, but persistent. I continue to believe he will benefit from neuroleptic medication. He is agreeable to Latuda. Will start at 40mg, monitor. 07/20/18 13:50 Psychosis: No change. Pt agrees to take Latuda. If not, will pursue COM. Subjective: Pt seen, discussed with staff. Reviewed events of yesterday. He states he was upset because RN "called me a liar." He insists he told his divorce attorney he was ( in the recent past) taking gabapentin, not meds in the hospital. He then states he felt pressured to take the medication without enough time to review the med ed sheets. He asks several questions re: TD and dosage. He then agrees to take Latuda 40mg starting today. WEEKEND PLAN: 07/21/18 19:25 1. Patient refuses to participate in treatment and won't attend any groups. 2. Patient continues to refuse Zyprexa. Will d/c. 3. Patient agreed to take Latuda after several discussions with Dr. Silvestre. After refusing it on 07/19, he took it as scheduled on 07/20 and 07/21. 4. Patient told RN he wants a "restraining order" against his [facility]. He refused to see her last night and this afternoon when she came for a visit. [facility] admits she gives him "whatever he wants" and "never gave him any boundaries" so he has taken advantage of her and continues to threaten and control her, especially by demanding money. 5. ST 07/22/18 18:42 1. Patient took Latuda again today. 2. Patient continues to be irritable with staff. He refused to get up and speak to CC or MD. Says, "I'm taking my meds, leave me alone." 3. Mother did not come for visit per patient's request. 4. STC Subjective: Patient stayed in his room most of the day. He refused to speak to CC or MD, saying he wanted to be left alone. He has been taking Latuda as prescribed by Dr. Silvestre. Patient has been irritable at times, but has not demonstrated any unsafe or aggressive behaviors on unit. He denies any thoughts, plan or intent to hurt himself or anyone else. Objective: Vital Signs Temp Pulse Resp BP Pulse Ox 36.4 C 73 16 99/64 L 95 07/16/18 06:00 07/16/18 06:00 07/16/18 06:00 07/16/18 06:00 07/16/18 06:00 MSE: Affect: Irritable Mood: "Leave me alone" TP: Linear TC: Denies SI/HI, less paranoid Insight/Judgment: Poor, but improved (agreed to take meds) - Time Spent With Patient Time Spent With Patient: 5" - Pending Discharge Pending Discharge Within 24 Hours: No Pending Discharge Within 48 Hours: No ICD10 Worksheet Patient Problems: Problems Problem Status Onset Homicidal ideation Acute Suicidal ideation Acute Unspecified psychosis Acute
[2018-07-22] MEDS: BENZOYL PEROXIDE TP SCH (22:38)
[2018-07-22] MEDS: ERYTHROMYCIN TP SCH (22:38)
[2018-07-23] MEDS: TRETINOIN 0.1% TP SCH (11:27)
--- NOTE | 2018-07-23 14:41 | SOAPPROG ---
SOAP Progress Note Assessment/Plan: Assessment: Plan: 07/19/18 17:59 Psychosis: Improved, but persistent. I continue to believe he will benefit from neuroleptic medication. He is agreeable to Latuda. Will start at 40mg, monitor. 07/20/18 13:50 Psychosis: No change. Pt agrees to take Latuda. If not, will pursue COM. 07/23/18 14:40 Psychosis: Compliant with meds. CCM. Finalize d/c plan. Subjective: Pt seen, discussed with staff. Reviewed plan to d/c soon with med compliance. Remains irritable, guarded, hostile towards staff if pressed at all. Refuses to attend most groups. I observe him being appropriately social with other patients, however, especially younger females. Compliant with Latuda for three nights. Notes no SE's. Refused to see his mother over the WE. Objective: Vital Signs Temp Pulse Resp BP Pulse Ox 36.4 C 73 16 99/64 L 95 07/16/18 06:00 07/16/18 06:00 07/16/18 06:00 07/16/18 06:00 07/16/18 06:00 MSE: Adequately groomed, guarded, but coop. Affect is restricted, stable. Mood is "fine." TP is generally linear. TC reveals continued paranoia. - Time Spent With Patient Time Spent With Patient: 15" ICD10 Worksheet Patient Problems: Problems Problem Status Onset Homicidal ideation Acute Suicidal ideation Acute Unspecified psychosis Acute
--- NOTE | 2018-07-23 15:25 | ASMTCMCOM ---
CM Note CM Note Notes: CC reached out to [employer] (client's attoreny) at [phone]; to speak about client. No answer left detailed VM with all necessary return contact information. Date Signed: 07/23/2018 03:24 PM Electronically Signed By:Chalino Rose
[2018-07-23] MEDS: LURASIDONE HCL 40 MG TAB PO SCH (17:14)
[2018-07-23] MEDS: ERYTHROMYCIN TP SCH (20:22)
[2018-07-23] MEDS: BENZOYL PEROXIDE TP SCH (20:22)
--- NOTE | 2018-07-24 11:29 | SOAPPROG ---
SOAP Progress Note Assessment/Plan: Assessment: Plan: 07/19/18 17:59 Psychosis: Improved, but persistent. I continue to believe he will benefit from neuroleptic medication. He is agreeable to Latuda. Will start at 40mg, monitor. 07/20/18 13:50 Psychosis: No change. Pt agrees to take Latuda. If not, will pursue COM. 07/23/18 14:40 Psychosis: Compliant with meds. CCM. Finalize d/c plan. 07/24/18 11:29 Psychosis: Doing much better overall. CCM. D/c by tomorrow when plan in place. Subjective: Pt seen, discussed with staff, interviewed in Treatment Team meeting. Reports feeling "good." Has been more interactive with others on unit. Compliant with meds. Discussed relationship with his mother. He identifies this conflict as a primary issue for him. He asks that he be allowed two weeks of no contact with her after discharge "to clear my head." Objective: Vital Signs Temp Pulse Resp BP Pulse Ox 36.4 C 73 16 99/64 L 95 07/16/18 06:00 07/16/18 06:00 07/16/18 06:00 07/16/18 06:00 07/16/18 06:00 MSE: Calm, coop. Affect is bright, stable. Mood is "good." TP is linear. TC reveals no obvious paranoia. His thoughts about his mother appear rational. Denies SI/HI/. - Time Spent With Patient Time Spent With Patient: 25" ICD10 Worksheet Patient Problems: Problems Problem Status Onset Homicidal ideation Acute Suicidal ideation Acute Unspecified psychosis Acute
--- NOTE | 2018-07-24 13:39 | ASMTCMCOM ---
CM Note CM Note Notes: Client participated in treatment team meeting today. Client appears more organized, less anxious, alert and pleasant. Client is taking his medications, has follow up appts, etc. Pt presents as alert, less anxious, affect is stable. Client mentioned "having at least two weeks to myself without my mother...this would allow [me] to concentrate on the things I need to do in order to be better." Treatment team agreed. Date Signed: 07/24/2018 01:38 PM Electronically Signed By:Chalino Rose
[2018-07-24] MEDS: TRETINOIN 0.1% TP SCH ×2 (13:54→15:14)
[2018-07-24] MEDS: LURASIDONE HCL 40 MG TAB PO SCH (17:16)
[2018-07-24 18:27] VITALS: BP 131/67
[2018-07-24] MEDS: ERYTHROMYCIN TP SCH (21:09)
[2018-07-24] MEDS: BENZOYL PEROXIDE TP SCH (21:09)
[2018-07-25] MEDS: TRETINOIN 0.1% TP SCH (12:40)
--- NOTE | 2018-07-25 12:50 | ASMTCMCOM ---
CM Note CM Note Notes: Client presents better on the unit than previous days. Client continues to take medications as well as interact with peers. Affect is stable, alert and mostly pleasant demeanor. Possible discharge set for tomorrow. Date Signed: 07/25/2018 12:49 PM Electronically Signed By:Chalino Rose
== END 2018-07-25 14:05 | disposition home or self-care (01) | DRG 885 ==
LOC: BBEH 07-13 11:00
PROVIDERS: ADMIT Psychiatry & Neurology Behavioral Neurology & Neuropsychiatry; ATTEND Psychiatry & Neurology Behavioral Neurology & Neuropsychiatry
DX: F25.0 Schizoaffective disorder, bipolar type (principal); B18.1 Chronic viral hepatitis B without delta-agent; T43.506A Underdosing of unspecified antipsychotics and neuroleptics, initial encounter; L70.0 Acne vulgaris; M26.629 Arthralgia of temporomandibular joint, unspecified side
CPT/HCPCS: 80305; G0480